=== PATIENT | female | born 1960 | race Caucasian/White ===

== ENCOUNTER 2016-09-30 09:36 | Emergency (ER) | payer BC ==
[2016-09-30 10:49] LABS: Urine Appearance Slightly Cloudy; Urine Bilirubin Negative (NEGATIVE); Urine Blood 10 /ul (NEGATIVE); Urine Color Yellow; Urine Ketone Negative (NEGATIVE); Urine Nitrite Negative (NEGATIVE); Urine Protein Negative (NEGATIVE); Urine RBC 0-5 /hpf (0-5); Urine Urobilinogen Normal (NORMAL); Urine WBC None Seen /hpf (0-5)
[2016-09-30 10:50] LABS: Urine Amorphous Sediment Moderate - 2+ (NONE-FEW); Urine Bacteria TRACE
[2016-09-30] MEDS ORDERED: KETOROLAC TROMETHAMINE 30 MG/ML VIAL IM ONE (11:47)
[2016-09-30] MEDS ORDERED: KETOROLAC TROMETHAMINE 30 MG/ML VIAL ONE (11:50)
[2016-09-30 12:17] VITALS: BP 156/76
--- NOTE | 2016-09-30 12:25 | ERNOTE ---
Back Pain ER HPI Date of Service: 09/30/16 Presenting Symptoms: injury/pain to back Time Seen by Provider: 09/30/16 10:16 Source: patient Exam Limitations: no limitations Immunizations: IMMUNIZATION HX History of Influenza Vaccine No Hx Pneumococcal Vaccination No Allergies/Adverse Reactions: Allergies No Known Allergies Allergy (Verified 09/30/16 09:49) Home Medications: HOME MEDICATIONS Aspirin [Aspirin Chewable] 81 mg PO DAILY 09/30/16 [Last Taken Unknown] HYDROcodone/ACETAMINOPHEN [[place] 5-325] 1 tab PO Q6H PRN #15 tab 09/30/16 [Last Taken Unknown] Multivitamin [One Daily Essential] 1 each PO DAILY 09/30/16 [Last Taken Unknown] Tamsulosin HCl [Flomax] 0.4 mg PO DAILY@1800 #7 cap 09/30/16 [Last Taken Unknown ] Narrative: Patient presents with acute left flank pain. Pain left flank begin this am. Was intense at first but now has improved with pain 2/10. No injury. Never had this before. Nothing seems to make it better or worse. Pain will wax and wane. No vomiting. no fever. no dysuria but some frequency. No abdominal pain. Timing: Reports: intermittent Quality/Severity: Reports: other - "pain" Location of pain: Reports: other - left flank Activities at Onset: Reports: none Recent Injury?: Reports: no Possible Precipitating Factor: Reports: none Modifying Factors - (Improves): Reports: nothing Modifying Factors - (Worsens): Reports: nothing Associated Symptoms: Denies: fever/chills, constipation/incontinence, difficulty walking, lightheadedness, numbess/weakness in legs Prior Treament: Denies: recently seen Review of Systems - Review of Systems Constitutional: Absent: fever ENT: Present: no symptoms reported Respiratory: Present: no symptoms reported Cardiology: Present: no symptoms reported Gastrointestinal/Abdominal: Present: no symptoms reported, See HPI. Absent: abdominal pain Genitourinary: Present: See HPI Skin: Present: no symptoms reported Neurological: Present: no symptoms reported - Patient's Past Medical History Patient History - Medical: No pertinent hx Patient History - Cancer: No Hx of Cancer Patient History - Surgical Procedures: Other - Social History Living Situations: other - from [place] Alcohol Use: none Drug Use: none Physical Exam - Physical Exam General Appearance: Present: alert, no apparent distress. Absent: lethargic Eye Exam: Normal inspection: bilateral Ears, Nose, Throat: Present: normal ENT inspection Neck: Present: normal inspection Respiratory: Present: no respiratory distress, normal breath sounds, no accessory muscle use Cardiovascular/Chest: Present: regular rate, rhythm, no murmur Gastrointestinal/Abdominal: Present: normal bowel sounds, nontender, soft. Absent: tenderness Back Exam: Present: CVA tenderness (L). 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 Absent: skin rash ED Progress - Results and Orders Patient's Lab Results:: I have reviewed the patient's lab results. - Vital Signs Patient's Vital Signs:: I have reviewed the patient's vital signs. Vital Signs: Vital Signs 09/30/16 09/30/16 09/30/16 09:43 10:37 11:32 Temperature 96.6 C H Pulse Rate 76 84 87 Respiratory 12 14 12 Rate Blood Pressure 188/98 185/88 198/99 O2 Sat by Pulse 97 98 99 Oximetry - CT/Ultrasound CT/Ultrasound Narrative: Reviewed CT result. 3mm stone left UVJ c/w her Sx. - Progress/Reassessment Chief Complaint: Back Pain Progress:: Improved Progress Note-Subjective: 09/30/16 12:17 No evidence of infected stone. 3mm stone left UVJ. No fever, sepsis or toxicity. Pain at level c/w ability tyo d/c. Flomax, Vicodin and urology f/u tomorrow. She is agreeable with this. I discussed warning signs and reasons to return as well as the need for close f/u. Plan - Plan Plan: Urology f/u tomorrow. Flomax and Vicodin Departure Clinical Impression: Kidney stone - Departure Disposition: Home self-care Condition: Stable Instructions: Kidney Stones, [id number] Additional Instructions: Rest. Fluids. no driving with narcotics. Follow-up tomorrow with urology as directed. Return for increased pain, fever or if your condition worsens or changes in any way. Prescriptions: HYDROcodone/ACETAMINOPHEN [[place] 5-325] 1 tab PO Q6H PRN #15 tab PRN Reason: Pain Tamsulosin HCl [Flomax] 0.4 mg PO DAILY@1800 #7 cap
== END 2016-09-30 12:37 | disposition home or self-care (01) ==
LOC: ER 09:36
DX: N20.0 Calculus of kidney (principal)

== ENCOUNTER 2016-10-02 12:21 | Emergency (ER) | payer BC ==
[2016-10-02 12:31] VITALS: BP 178/92
[2016-10-02] MEDS ORDERED: KETOROLAC TROMETHAMINE 60 MG/2 ML VIAL IM ONE ×2 (12:49→12:53)
--- NOTE | 2016-10-02 12:57 | ERNOTE ---
Back Pain ER HPI Date of Service: 10/02/16 Time Seen by Provider: 10/02/16 12:39 Source: patient Exam Limitations: no limitations Immunizations: IMMUNIZATION HX History of Influenza Vaccine No Hx Pneumococcal Vaccination No Allergies/Adverse Reactions: Allergies No Known Allergies Allergy (Verified 10/02/16 12:31) Home Medications: HOME MEDICATIONS Aspirin [Aspirin Chewable] 81 mg PO DAILY 09/30/16 [Last Taken Unknown] HYDROcodone/ACETAMINOPHEN [[place] 5-325] 1 tab PO Q6H PRN #15 tab 09/30/16 [Last Taken Unknown] Multivitamin [One Daily Essential] 1 each PO DAILY 09/30/16 [Last Taken Unknown] Tamsulosin HCl [Flomax] 0.4 mg PO DAILY@1800 #7 cap 09/30/16 [Last Taken Unknown ] Naproxen [Naprosyn] 500 mg PO BID PRN #60 tab 10/02/16 [Last Taken Unknown] Ondansetron [Zofran Odt] 4 mg PO Q6H PRN #20 tab 10/02/16 [Last Taken Unknown] Narrative: Pt presents to ER with c/o left lower back pain that started this am. Pt states she passed a kidney stone yesterday and it feels the same as it did then. Pt admits to urinary frequency and nausea. Pt denies pelvic pain, and abdominal pain. Date (Duration): 10/02/16 Time (Timing): 06:00 Timing: Reports: constant Quality/Severity: Reports: moderate - pain is 5-6/10 Location of pain: Reports: lower back - lower left side of back Associated Symptoms: Reports: nausea/vomiting - nausea no vomiting. Denies: fever/chills, sweating, constipation/incontinence, lightheadedness, numbess/ weakness in legs Prior Treament: Reports: recently seen - just passed a kidney stone yesterday Review of Systems - Review of Systems Constitutional: Present: no symptoms reported. Absent: recent illness, fever, chills, diaphoresis, weakness, fatigue, malaise, weight loss, decreased activity level EYE: Present: no symptoms reported. Absent: eye pain, eye discharge, blurred vision, double vision, vision changes ENT: Present: no symptoms reported. Absent: ear pain, ear discharge, nose pain , nose congestion, nasal drainage, sore throat, throat swelling Respiratory: Present: no symptoms reported. Absent: shortness of breath, cough , wheezing Cardiology: Present: no symptoms reported. Absent: chest pain, palpitations Gastrointestinal/Abdominal: Present: nausea. Absent: vomiting, diarrhea, constipation, abdominal pain, eating less, drinking less Genitourinary: Present: frequency, other - passed a kidney stone yesterday. Absent: pain, dysuria, hematuria Musculoskeletal: Present: back pain - left lower back pain Skin: Present: no symptoms reported, lesions. Absent: rash, dryness, change in color Neurological: Present: no symptoms reported. Absent: anxiety, depressed, emotional problems, headache, dizziness/light-headedness, numbness, tingling Endocrine: Present: no symptoms reported. Absent: excessive sweating, flushing , intolerance to heat, intolerance to cold Hematologic/Lymphatic: Present: no symptoms reported. Absent: easy bruising, easy bleeding Psych: Present: no symptoms reported. Absent: anxiety, depressed - Patient's Past Medical History Patient History - Medical: No pertinent hx, Other Additional info: kidney stone Patient History - Cardiac/Respiratory: No pertinent hx Patient History - Cancer: No Hx of Cancer Patient History - Surgical Procedures: Other Patient History - Other: None - Social History Living Situations: other - from [place] Smoking Status: Former smoker Have you smoked in the past 12 months: No Do you dip or chew tobacco: No Alcohol Use: rarely Drug Use: none - Immunizations Hx Pneumococcal Vaccination: No History of Influenza Vaccine: No Physical Exam - Physical Exam General Appearance: Present: wd/wn, alert, mild distress, obese. Absent: anxious, irritable Eye Exam: Normal inspection: bilateral, PERRL: bilateral, EOMI: bilateral Ears, Nose, Throat: Present: normal ENT inspection, hearing grossly normal, cerumen impaction, normal pharynx. Absent: nasal congestion, sinus pain/ drainage Neck: Present: normal inspection, nontender, supple, full range of motion. Absent: limited range of motion Respiratory: Present: no respiratory distress, normal breath sounds, no accessory muscle use, chest nontender, lungs clear. Absent: respiratory distress, accessory muscle use, decreased breath sounds, crackles, rales, rhonchi, stridor, wheezing Cardiovascular/Chest: Present: regular rate, rhythm, no murmur, normal peripheral pulses. Absent: tachycardia, bradycardia, irregularly irregular Gastrointestinal/Abdominal: Present: normal bowel sounds, nontender, nondistended, soft, no organomegaly. Absent: tenderness, abnormal bowel sounds , distended, guarding, rebound Back Exam: Present: normal inspection, normal range of motion, no CVA tenderness , no vertebral tenderness, other - Pt states the pain feels like it is inside on her left lower back . 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 Absent: facial droop, motor weakness Skin Exam: Present: normal color, warm/dry. Absent: diaphoresis, cyanosis, jaundice, skin rash Lymphatic Exam: Present: no adenopathy ED Progress - Date and Time Seen: Date and Time: 10/02/16 15:07 CT with L sided UVJ stone will have pt. restart flomax and naproxen and see urology next week 10/02/16 15:[address] Escobar and he agrees with plan. - Results and Orders Patient's Lab Results:: I have reviewed the patient's lab results. - Vital Signs Patient's Vital Signs:: I have reviewed the patient's vital signs. Vital Signs: Vital Signs 10/02/16 12:29 Temperature 96.6 C H Pulse Rate 74 Respiratory 14 Rate Blood Pressure 178/92 O2 Sat by Pulse 97 Oximetry - CT/Ultrasound CT/Ultrasound Narrative: CT with L sided UVJ stone - Progress/Reassessment Chief Complaint: Back Pain Departure Clinical Impression: Kidney stone - Departure Disposition: Home self-care Condition: Good Instructions: Kidney Stones, [id number] Additional Instructions: Increase fluid intake and see urology next week. Restart Flomax Referrals: Shawn Wong MD [Associate] - Prescriptions: Naproxen [Naprosyn] 500 mg PO BID PRN #60 tab PRN Reason: Pain Ondansetron [Zofran Odt] 4 mg PO Q6H PRN #20 tab PRN Reason: Nausea
[2016-10-02 12:59] LABS: Urine Bilirubin Negative (NEGATIVE); Urine Blood 25 /ul (NEGATIVE); Urine Ketone Negative (NEGATIVE); Urine Nitrite Negative (NEGATIVE); Urine Protein Negative (NEGATIVE); Urine Specific Gravity 1.015 SP.GR. (1.005-1.010); Urine Urobilinogen Normal (NORMAL); Urine pH 6.5 pH (5.0-7.0)
[2016-10-02 12:59] LABS: Hematocrit 41.8 % (37.0-47.0); Hemoglobin 13.8 gm/dL (12.5-16.0); Mean Cell Volume 89.5 fl (78-100); Mean Corpuscular Hemoglobin 29.6 pg (27-31); Neutrophil # 8.3 K/mm3 (1.3-6.0); Neutrophil % 77.6 % (42-75.0); Platelet Count 313 K/mm3 (150-450); Red Blood Count 4.67 M/mm3 (4.2-5.4); Red Cell Distribution Width 13.4 % (11.5-14.0); White Blood Count 10.6 K/mm3 (4.0-10.5)
[2016-10-02 13:10] LABS: Urine Appearance Clear; Urine Bacteria None Seen; Urine Color Yellow; Urine RBC 0-5 /hpf (0-5); Urine WBC None Seen /hpf (0-5)
[2016-10-02 13:13] LABS: Albumin * 3.7 gm/dl (3.4-5.0); Anion Gap 11.7 mmol/L (6.8-13.8); BUN/Creatinine Ratio 14.4 (9.0-21.6); Bilirubin, Total 0.7 mg/dL (0.0-1.1); Ca. Corrected For Albumin 9.5 mg/dL (8.4-10.2); Calcium * 9.6 mg/dL (7.9-10.9); Carbon Dioxide 30.9 mmol/L (24-32.6); Potassium 3.6 mmol/L (3.4-4.6); Total Protein 7.3 gm/dL (6.2-8.2)
== END 2016-10-02 15:45 | disposition home or self-care (01) ==
LOC: ER 12:21
DX: Z87.891 Personal history of nicotine dependence (principal); N20.0 Calculus of kidney